=== PATIENT | female | born 1945 | race Caucasian/White ===

== ENCOUNTER 2023-11-25 11:19 | Outpatient (CLI) | payer MEDICARE, SELFPAY ==
[2023-11-25 12:26] LABS: Pathologist Comment May follow
[2023-11-25 13:09] LABS: Erythrocyte Sedimentation Rate 23 mm/hr (0-30)
[2023-11-25 13:11] LABS: Absolute Lymphocyte Count 1.47 X10^3/uL (0.83-4.51); Absolute Neutrophil Count 2.7 X10^3/uL (2.0-7.7); Basophil# 0.05 X10^3/uL; Eosinophil# 0.11 X10^3/uL; Eosinophils% 2.3 % (0-5); Hematocrit 36.6 % (37-47); Hemoglobin 12.1 g/dL (12.0-15.0); Lymphocyte # 1.47 X10^3/ul (0.83-4.51); Lymphocyte % 30.8 % (19-41); Mean Corp Hgb Conc 33.1 g/dL (32-36); Mean Corpuscular Hgb 29.7 pg (27.0-32.0); Mean Corpuscular Volume 89.7 fL (81-99); Mean Platelet Vol. 10.2 fl (6.2-12.0); Monocyte# 0.49 X10^3/uL; Monocyte% 10.3 % (0-10); NRBC Flagged by Analyzer 0 % (0-5); Neutrophil # 2.65 X10^3/uL (2.7-7.7); Neutrophil % 55.6 % (47-70); Platelet Count 240 K/mm3 (150-450); RBC Distribution Width CV 12.9 % (11.6-14.6); RBC Distribution Width SD 42.4 fl (35.1-43.9); Red Blood Count 4.08 M/mm3 (4.2-5.4); White Blood Count 4.8 K/mm3 (4.4-11.0)
[2023-11-25 13:17] LABS: CRP < 2.90 mg/L (0.0-3.0)
[2023-11-25 13:29] LABS: Synovial Fld Mononuclear WBC # 0.325 10^3/ul; Synovial Fld Mononuclear WBC % 79.3 %; Synovial Fld Polynuclear WBC # 0.085 10^3/uL; Synovial Fld Polynuclear WBC % 20.7 %
[2023-11-25 14:39] LABS: Lymph 25 %; Monocyte /Synovial Fluid 45 %; Neutrophil 21 % (0-25); Other Cell /Synovial Fluid 9 %
[2023-11-25 14:40] LABS: AUTO B FLUID DILUENT BKGD CT WBC <0.1 RBC <0.01 (W<.1,R<.01); CRYSTALS, BODY FLUID NO CRYSTALS SEEN
[2023-11-25 14:41] LABS: Appearance /Synovial Fluid Sl hazy (CLEAR); Body Fluid QC Type(s) BF1Q,BF2Q; Color / Synovial Fluid Yellow (Pale Yellow); Source / Synovial Fluid RIGHT SHOULDER; Source- Body Fluid SYNOVIAL
[2023-11-26 10:59] LABS: Pathologist Review Reviewed
== END 2023-11-25 23:59 | disposition home or self-care (01) ==
LOC: LAB 11:26
PROVIDERS: PCP Family Medicine; Referring Provider Orthopaedic Surgery; Visit Provider Orthopaedic Surgery
DX: M19.011 Primary osteoarthritis, right shoulder (principal); M25.411 Effusion, right shoulder
CPT/HCPCS: 36415; 85025; 85652; 86140; 87070; 87075; 87205; 89050; 89051; 89060

== ENCOUNTER → 2024-04-27 | Outpatient (CLI) | payer MEDICARE, SELFPAY ==
--- NOTE | 2024-04-27 08:21 | CT_ITS ---
STUDY: CT RIGHT SHOULDER REASON FOR EXAM: Female, 78 years old. PAIN IN RIGHT SHOULDER. PRE-OP RADIATION DOSAGE (If Supplied By Facility): CTDIvol = ( 17.81 ) mGy, DLP = ( 443.07 ) mGycm TECHNIQUE: The patient was scanned in a multi detector CT scanner. High resolution transaxial imaging was performed without the administration of intravenous contrast material. Sagittal and coronal images were reconstructed. Individualized dose optimization techniques were used for this CT. COMPARISON: None. FINDINGS: There is anterior-inferior dislocation of the humeral head with respect to the glenoid. There is a Hill-Sachs lesion of the superior humeral head. There is a fracture of the anterior-inferior glenoid with 1 cm anteroinferior displacement, compatible with a bony Bankart lesion. There is a large glenohumeral joint effusion. Normal glenoid neck and visualized scapula. Normal coracoid process. Normal visualized lateral clavicle. There is hypertrophic acromioclavicular arthrosis. There is a Type II morphology (curved), with a neutral orientation. Normal visualized muscles and soft tissue structures. CT/Extremity Upper without Contra IMPRESSION: Anterior-inferior dislocation of the humeral head with respect to the glenoid. Hill-Sachs lesion of the superior humeral head. Fracture of the anterior-inferior glenoid with 1 cm anteroinferior displacement, compatible with a bony Bankart lesion. Large glenohumeral joint effusion. Hypertrophic acromioclavicular arthrosis. Electronically Signed: Christopher Yeboah MD at 9:07 EDT ,
[2024-04-27 09:16] LABS: Absolute Lymphocyte Count 1.37 X10^3/uL (0.83-4.51); Absolute Neutrophil Count 2.7 X10^3/uL (2.0-7.7); Basophil# 0.05 X10^3/uL; Basophil% 1.1 % (0-1); Eosinophils% 2.1 % (0-5); Hemoglobin 12.8 g/dL (12.0-15.0); Lymphocyte # 1.37 X10^3/ul (0.83-4.51); Lymphocyte % 28.9 % (19-41); Mean Corp Hgb Conc 32.8 g/dL (32-36); Mean Corpuscular Hgb 30.2 pg (27.0-32.0); Monocyte# 0.52 X10^3/uL; NRBC Flagged by Analyzer 0 % (0-5); Neutrophil # 2.69 X10^3/uL (2.7-7.7); Neutrophil % 56.7 % (47-70); Platelet Count 223 K/mm3 (150-450); RBC Distribution Width CV 13.2 % (11.6-14.6); RBC Distribution Width SD 44.4 fl (35.1-43.9); Red Blood Count 4.24 M/mm3 (4.2-5.4); White Blood Count 4.7 K/mm3 (4.4-11.0)
[2024-04-27 10:36] LABS: Albumin, Serum 3.8 g/dL (3.2-5.0); Anion Gap 8 (5-15); BUN 20 mg/dL (7-18); BUN/Creat Ratio 20.7 RATIO (10-20); Calcium,Total 9.5 mg/dL (8.5-10.1); Chloride 106 mmol/L (98-107); Creatinine, Serum 0.97 mg/dL (0.55-1.02); EST Glomerular Filtration Rate 59 mL/min (>60); Est Glom Filt Rate - Afr Amer 72 mL/min (>60); Glucose 95 mg/dL (74-106); Potassium 3.9 mmol/L (3.5-5.1); Sodium Level 139 mmol/L (136-145)
== END | disposition home or self-care (01) ==
LOC: CT 08:16
PROVIDERS: PCP Family Medicine; Referring Provider Student in an Organized Health Care Education/Training Program; Visit Provider Student in an Organized Health Care Education/Training Program
DX: Z01.818 Encounter for other preprocedural examination (principal); M19.011 Primary osteoarthritis, right shoulder; M25.511 Pain in right shoulder; Z01.810 Encounter for preprocedural cardiovascular examination
CPT/HCPCS: 36415; 73200; 80048; 82040; 85025; 87081

== ENCOUNTER 2024-05-27 05:21 | Day surgery (SDC) | payer MEDICARE, SELFPAY ==
--- NOTE | 2024-04-27 08:23 | EKG12_ITS ---
Test Reason : PREOP Blood Pressure : / mmHG Vent. Rate : 067 BPM Atrial Rate : 067 BPM P-R Int : 152 ms QRS Dur : 090 ms QT Int : 416 ms P-R-T Axes : 032 -17 007 degrees QTc Int : 439 ms Normal sinus rhythm Inferior infarct , age undetermined Abnormal ECG Confirmed by MARISA DONNELLY, DARLINE ([id number]), editor school photograph EDUARDO STEPHENS ([id number]) on 04/28/2024 10:59:08 AM Referred By: IVAN Confirmed By:DARLINE CUNNINGHAM MD
[2024-05-27] VITALS (11 sets, daily range): BP systolic 134–162; BP diastolic 68–79; PULSE 65–79; RESP 12–20; TEMP 36.1–36.2; O2SAT 86–98; BMI 31.4
[2024-05-27] MEDS: Acetaminophen 500 MG Tablet 1000 MG PO (06:21)
[2024-05-27] MEDS: Gabapentin 600 MG Tablet PO (06:22)
[2024-05-27] MEDS: Celecoxib 200 MG Capsule 400 MG PO (06:22)
[2024-05-27] MEDS: Lactated Ringers 1,000 ML 15 ML IV (06:23)
[2024-05-27 06:26] LABS: Magnesium 2.1 mg/dL (1.6-2.6)
--- NOTE | 2024-05-27 06:55 | PRE.ANES_ITS ---
ASA Classification* ASA Classification ASA Classification: 2 Assessment & Plan Anesthesia* Anesthesia Assessment Anesthesia Assessment: Discussed sedation and/or anesthesia options, risks, benefits, and alternatives with patient/parents/legal guardian/POA. Questions invited. The patient/parents/legal guardian/POA seems to understand and agrees to proceed with anesthesia plan. Reviewed the physical assessment, medical history, allergy history and patient home medications list prior to surgery/procedure/anesthetic and documented any changes. Performed airway and anesthesia risk assessments. Anesthesia Type Anesthesia Type: General Anesthesia Focused Assessment* Temperature: 97.1 F Pulse Rate: 71 Blood Pressure: 162/76 Respiratory Rate: 20 Pulse Ox: 96 Airway Assessment Mouth opens: >3 cm Mallampati Score: II Focused Labs Anesthesia Preop lab: CBC WBC 4.7 K/mm3 (4.4-11.0) 04/27/24 08:42 RBC 4.24 M/mm3 (4.2-5.4) 04/27/24 08:42 Hgb 12.8 g/dL (12.0-15.0) 04/27/24 08:42 Hct 39.0 % (37-47) 04/27/24 08:42 Plt Count 223 K/mm3 (150-450) 04/27/24 08:42 CHEMISTRY Potassium 3.9 mmol/L (3.5-5.1) 04/27/24 08:42 Sodium 139 mmol/L (136-145) 04/27/24 08:42 Magnesium 2.1 mg/dL (1.6-2.6) 05/27/24 06:02 BUN 20 mg/dL (7-18) H 04/27/24 08:42 Creatinine 0.97 mg/dL (0.55-1.02) 04/27/24 08:42 Glucose 95 mg/dL (74-106) 04/27/24 08:42 COAG Pre-Assessment Diagnosis/Proposed Procedure Planned Operative Procedure(s): REVERSE RIGHT TOTAL SHOULDER ARTHROPLASTY Anesthesia History Anesthesia History - customer contact specialist: Anesthesia History - customer contact specialist Hx Hospitalization No 05/13/24 11:47 Any Problems With Anesthesia No 05/13/24 11:47 Cholinesterase deficiency No 05/13/24 11:47 You/Your Family Experience No 05/13/24 11:47 fever (hyperthermia) with Relationship Recent Exposure to Contagious No 05/27/24 06:11 Disease Does patient have nerve No 05/13/24 11:47 stimulator Patient instructed to have device shut off --Does patient have Pacemaker No 05/27/24 06:11 or ICD? When Was Last Pacemaker Check QUESTION #4 FULL TEXT: You/Your Family Experience fever (hyperthermia) with Anesthesia Last Oral Intake Last Oral intake: Last Oral Intake NPO since 21:00 05/27/24 06:11 Meds taken in AM with sips of No 05/27/24 06:11 water? Meds patient instructed to take am of surgery PONV PONV - customer contact specialist: PONV - customer contact specialist Female Yes 05/13/24 11:47 HX of Motion Sickness No 05/13/24 11:47 HX of N/V After Surgery No 05/13/24 11:47 Non-Smoker Yes 05/13/24 11:47 Duration of Surgery greater Yes 05/13/24 11:47 than 60 minutes Number of Risk Factors 3 05/13/24 11:47 PONV Score Moderate Risk 05/13/24 11:47 Height & Weight Height & Weight: Anesthesia: Height & Weight Height 5 ft 2 in 05/27/24 06:11 Weight: 78 kg 05/27/24 06:11 Body Mass Index (BMI) 31.4 05/27/24 06:11 Respiratory Assessment Respiratory Assessment - customer contact specialist: Respiratory Tract Infection Hx - customer contact specialist Hx Respiratory Tract Infection No 05/13/24 11:47 STOP Sleep Apnea STOP Sleep Apnea - customer contact specialist: STOP Sleep Apnea - customer contact specialist Hx Hypertension Yes: CONTROLLED WITH MED 05/13/24 11:47 Hx Sleep Apnea No 05/13/24 11:47 CPAP BIPAP Do you snore loudly (louder Yes 05/13/24 11:47 than talking or can be heard Do you often feel tired/ No 05/13/24 11:47 fatigued/ sleepy during daytime? Has anyone observed you stop No 05/13/24 11:47 breathing during sleep? STOP Results Positive 05/13/24 11:47 QUESTION #5 FULL TEXT : Do you snore loudly (louder than talking or can be heard through closed doors)? Tobacco Use History Tobacco Use History - customer contact specialist: Tobacco Use History - customer contact specialist Tobacco Use Smoking Status Never smoker 05/13/24 11:47 Hx Tobacco Use No 05/13/24 11:47 Years Smoking Packs Smoked per Day Smoking Cessation Date was within the last 15 years Hx Smoking Cessation Date Hx Smoking Cessation Counseling Hematologic Medial History Hematologic Hx - customer contact specialist: Hematologic Medical Hx - polisher balance screwhead Hx of Blood Transfusion No 05/13/24 11:47 Hx of Transfusion in last 3 No 05/13/24 11:47 Months Date of Last Transfusion (if within last 3 months) Ever experience any problems No 05/13/24 11:47 with transfusion(s)? Specify any problems Hx of Preganancy in last 3 No 05/13/24 11:47 Months Nurse Filling Out Transfusion DSCHRIBER 05/13/24 11:47 & Questions: Date: 05/13/24 05/13/24 11:47 Time: 11:48 05/13/24 11:47 Patient unable to answer at this time (ie. confused, unrespo /Reproduction History /Reproductive History - customer contact specialist: /Reproductive Hx- customer contact specialist Hx Now No 05/13/24 11:47 Gestational Age (in weeks): EDC: Hx Hx Para Hx Section SAB No 05/13/24 11:47 Active Medications Active Medications: Current Medications Generic Name Dose Route Start Last Admin Trade Name Terry PRN Reason Stop Dose Admin Acetaminophen 1,000 mg 05/27/24 10:30 05/27/24 06:21 Acetaminophen 500 Mg Tablet PO 05/27/24 10:31 1,000 mg X1 ONE Administration Celecoxib 400 mg 05/27/24 10:30 05/27/24 06:22 Celecoxib 200 Mg Capsule PO 05/27/24 10:31 400 mg X1 ONE Administration Sodium Chloride 77.4 ml/ 0 ml 05/27/24 10:30 Ropivacaine 200 mg/ OPERA.SITE 05/27/24 10:31 Epinephrine HCl 0.6 mg/ X1 ONE Ketorolac Tromethamine 30 mg/ Morphine Sulfate 5 mg Dexamethasone Sodium Phosphate 10 mg 05/27/24 10:30 Dexamethasone 10 Mg/Ml Vial IV 05/27/24 10:31 X1 ONE Gabapentin 600 mg 05/27/24 10:30 05/27/24 06:22 Gabapentin 600 Mg Tablet PO 05/27/24 10:31 600 mg X1 ONE Administration Tranexamic Acid 1,000 mg/ 110 mls @ 660 mls/hr 05/27/24 10:30 Sodium Chloride IV 05/27/24 10:39 X1 ONE Tranexamic Acid 1,000 mg/ 110 mls @ 660 mls/hr 05/27/24 11:00 Sodium Chloride IV 05/27/24 11:09 X1 ONE Cefazolin Sodium 2 gm/ N/A 20 mls @ 400 mls/hr 05/27/24 10:30 IV 05/27/24 10:32 PREOP ONE Lactated Ringer's 1,000 mls @ 15 mls/hr 05/27/24 06:30 05/27/24 06:23 IV 06/01/24 19:49 15 mls/hr .Q48H SHELBIE Administration Protocol Magnesium Sulfate 1 gm/ 102 mls @ 408 mls/hr 05/27/24 07:30 Dextrose IV 05/27/24 07:44 X1 ONE Insulin Human Lispro 1 - 6 unit 05/27/24 10:30 Insulin Lispro 100 Unit/Ml Insuln.Pen SC 05/27/24 16:30 Q4H PRN PRN BG>/= 180, SEE PROTOCOL Protocol PFSH Medical History Wears glasses Wears dentures Post-menopausal Arthritis High cholesterol Non-smoker Leg cramps History of pain when walking Hypertension Home Medications ?Medication ?Instructions ?Recorded ?Last Taken ?Type cod liver oil 1 cap PO DAILY 05/13/24 05/21/24 History coenzyme Q10 100 mg capsule (Co 100 mg PO DAILY 05/13/24 05/22/24 History Q-10) glucosamine sulf dipot 1 cap PO DAILY 05/13/24 05/22/24 History chlr,msm,chond 550 mg-C 30 mg-ghanshyam 1 mg capsule (Glucosamine Chondroitin) losartan 50 mg-hydrochlorothiazide 0.5 tab PO DAILY 05/13/24 05/26/24 History 12.5 mg tablet fzuwxlgs-slia-udvk 8 mg-folic 400 1 tab PO DAILY 05/13/24 05/21/24 History mcg-K 50 mcg-lutein 300 mcg tablet (Multivitamin Women 50 Plus) rosuvastatin 5 mg tablet 5 mg PO QHS 05/13/24 05/26/24 History turmeric 400 mg capsule 400 mg PO DAILY 05/13/24 05/21/24 History Allergy/AdvReac Type Severity Reaction Status Date / Time No Known Allergies Allergy Verified 05/27/24 06:09 Surgical History Hx of breast surgery Hx of tubal ligation Social History Smoking Status: Never smoker Review of Systems (Anesthesia) ROS Narrative System reviewed and no additional complaints, except as documented.
[2024-05-27] MEDS: Magnesium 1 GM over 15 mins IV (07:13)
--- NOTE | 2024-05-27 07:30 | SHO_PTH ---
PATIENT: ROSA ISELA DEVI LOC: [facility] U#:[id number] AGE/SX: 78/F ROOM: RE05/27/[address]: Dr. Kurtis Dumont DO : 1945 BED: DIS: 05/27/2024 SPEC #: [id number] RECD: 05/27/24 11:06 STATUS: JOSE REQ #: [id number] IGOR: 05/27/24 07:[address]: Kurtis Dumont DEPT: SURGICAL PATHOLOGY RECD BY: Katina Oakley ENTERED: 05/27/24 12:11 SP TYPE: HUMERUS OTHR DR: Dr. Alexandre Cee MD Tissues: Humerus, NOS Procedures: Decalcification bone/plaque Surgery Specimen Level IV HEADER OPERATION: Reverse right total shoulder arthroplasty PRE-OP DIAGNOSIS: Right shoulder glenohumeral joint dislocation TISSUE SUBMITTED: Humeral head MICROSCOPIC DIAGNOSIS Bone and tissue right shoulder, total shoulder replacement/resection: Fragment of bone with attached cartilage and soft tissue showing degenerative changes. 06/02/2024 MICROSCOPIC DESCRIPTION Slides are reviewed. GROSS DESCRIPTION Received is one container labeled with the patient's name and designated bone and soft tissue. The specimen consists of a humeral head measuring 4.5 x 4.0 x 1.5 cm. The articular surface shows areas of erosion, eburnation and osteophyte formation. No soft tissue is identified. Supervisor Phosphatic Fertilizer sections are submitted in one cassette after decalcification. / ERICA: 05/27/2024 TC:5 CPT: 31701, 82813
[2024-05-27 07:34] LABS: Bedside Glucose 108 mg/dL (74-106)
[2024-05-27] MEDS: TXA 1000mg in NS100 100ml (IVPB at Incision) 660 MG IV (08:00)
[2024-05-27] MEDS: dexAMETHasone 10 MG/ML Vial IV (08:00)
[2024-05-27] MEDS: Cefazolin 2 GM in Syringe IV (08:00)
--- NOTE | 2024-05-27 09:46 | OP.PCM_ITS ---
Operative Report (Standard) Operative Information Surgery/Procedure Performed: Right reverse shoulder arthroplasty Surgeon: Kurtis Dumont Date of Procedure: 05/27/24 Procedure Start Time: 08:14 Procedure Stop Time: 09:46 Pre-Operative Diagnosis: Right shoulder cuff tear arthropathy Post-Operative Diagnosis: Right shoulder cuff tear arthropathy Select all DRAINS/GRAFTS/IMPLANTS that apply: None Type of Anesthesia: General/Regional Estimated Blood Loss: 50 cc Fluids Replaced: Per anesthesia record Specimen collected: Yes Description of specimen(s) removed: Right humeral head Description of surgery: Surgeon: Kurtis Dumont DO Rate Engineer: Caitlin Chun PA-C Anesthesia: General endotracheal with interscalene block Associate Director Career Services: Gideon Jay CRNA Complications: None apparent Drains: None Surgical implants: Tornier Aequalis PerFORM+ reversed baseplate 25 mm diameter with half wedge augmentation, +3 mm lateralized standard glenosphere cobalt chrome 39 mm diameter, Tornier perform inlay stem size # 2, + 0 mm retentive size polyethylene insert, 25 mm central screw and peripheral screws x4. Surgical indications: This is a 78-year-old female with persistent right shoulder pain. She did have worsening symptoms over the last several months. X-rays revealed rotator cuff arthropathy with anterior deficiency and erosive wear of the anterior glenoid and subluxation.. I recommended a reverse shoulder arthroplasty. We obtained a preoperative CT scan for planning. The risks, benefits, alternatives the procedure was reviewed with the patient and he agreed to proceed. Risks included but were not limited to bleeding, infection, instability, loss of life or limb, risk of anesthesia, neurovascular injury, persistent pain, stiffness, prolonged immobilization, need for additional surgery, loosening of orthopedic hardware. She expressed understanding and wished to proceed with surgery. Surgical details: Patient arrived to [facility] morning of the procedure and was greeted by the same day surgery staff. Prior to her procedure, I greeted the patient in the preoperative holding area I identified the patient by name, record number, and date of . Informed consent was confirmed. The operative extremity was marked. All questions were answered to patient satisfaction. An interscalene block was administered prior to procedure by anesthesia staff for postoperative and intraoperative analgesia. At time of her procedure, patient was brought to the operative suite and positioned supine on a standard table with a beachchair attachment. General anesthesia was induced after all bony prominences were well-padded. Endotracheal tube was placed. After adequate anesthesia and securing the tube, we prepared the patient to be positioned in the beachchair position. A well- padded baker head was applied. The nonoperative extremity was placed in a well arm gallegos. She was then brought into the beachchair position after we confirmed an appropriate blood pressure. We then spun the bed 45 degrees. The operative extremity was then prepared. In the butterfly wing of the bed was removed and a well-padded torso strap was applied to secure the patient to the ed. The operative extremity was now free. We then prepped and draped the right upper extremity in normal, sterile orthopedic fashion. We then performed a timeout with all parties in attendance in agreement with the side, site, and operation be performed. 2 g Ancef was administered prior to incision by anesthesia staff, as well as 1 g TXA IV. No concerns were voiced and we elected to proceed. I first marked a standard deltopectoral incision just lateral to the coracoid process in line with the long axis of the humerus. Skin was sharply incised with 10 blade scalpel. I then dissected bluntly through the subcutaneous layers and found the fat stripe between the deltoid and pectoralis major. The cephalic vein was then identified and protected. It was retracted laterally with the deltoid. I then bluntly dissected underneath the deltoid with a Sethi elevator. Dhruv retractor was placed. The upper 1 cm of the pectoralis major was released. I then identified the long head of the biceps tendon in the intertubercular groove. This was tenodesed in situ with #2 FiberWire. I then amputated the biceps proximal to the tenodesis site and followed the tendon to the supraglenoid tubercle where it was amputated. This identified the lesser and greater tuberosities. The stab scapularis was chronically torn and the patient. Anterior capsule was released from the anterior and inferior humeral articular insertions with an external rotation of the shoulder. Humeral head was dislocated anteriorly. Appropriate access to the humeral head was confirmed. I then subluxed the humeral head posteriorly with a Fukuda retractor placed around the posterior lip of the glenoid. Inferior capsule was tensioned. I was able to palpate the axillary nerve. Inferior capsule was then released to the 4 o'clock position of the glenoid face. I then remove the Fukuda retractor and redislocated the shoulder anteriorly. I then made a anatomic neck cut of the cartilaginous surface of the humeral head. Sizing plate for a size # 2 stem was utilized to determine appropriate reaming size. A central pin was placed engaging the lateral cortex of the humerus. A size # 2reamer was used to ream the humeral metaphysis and prepare for the inlay stem. A canal finding reamer was utilized prior to sequential broaching to a size # 2 short stem with excellent rotational and axial purchase in the humerus. I remove the broach handle left the size # [address] I then subluxed the humerus posterior to the glenoid. I then placed retractors around the posterior and anterior glenoid to expose the glenoid. Remanent of glenoid labrum was removed with Bovie cautery protecting the axillary nerve. The glenoid deformity demonstrated significant sandra glenoid anteriorly with a noted deficiency of approximately one third of the paleo glenoid. A half wedge augment appeared to still the deficiency well. Center pin was placed per CT plan. The Nautilus shaped reamer was then placed over top of the centering pin. I reamed a flat surface of the glenoid to the level of the deficiency. The augmented reamer was then used to prepare the anterior deficiency. We then removed the reamer and used the cannulated drill for the central screw. Screw and baseplate was assembled on the back table. We then inserted the baseplate and central post the assembled baseplate to an appropriate depth with cortical purchase. Screw A [place] was used to confirm depth. Cortical screws then were placed in the peripheral holes with good purchase. The baseplate had excellent purchase and the entire scapula would rotate with rotation of the baseplate. We then impacted the 39+3 lateralization mm glenospher tightened the locking screw mechanism. We then removed retractors and turned our attention back to the humerus. I placed a standard +0 millimeters retentive polyethylene insert. I then reduced the shoulder. There was excellent range of motion and stability in all planes of motion. We selected this as our final size. We removed trials from the humerus after final dislocation. I copiously irrigated the canal. Broach was placed on hand and then impacted to an appropriate depth. Final +0 mm retentive polyethylene insert was placed. Final reduction was then performed. We then copiously irrigated the wound with sterile Betadine and normal saline solution. We reapproximated the interval with 0 Vicryl suture. Subcutaneous layers were reapproximated with 2 -0 Vicryl suture. Skin was finally running V- Loc 3-0 Monocryl suture and Dermabond. A sterile silver Mepilex dressing was applied. Patient was then placed in an ultra sling. Patient tolerated procedure well without complication. She was positioned back in the supine position extubated in the operative suite. He was transferred [facility] and subsequently to PACU in stable condition. Need for skilled malt specifications control assistant: Caitlin Chun PA-C was critical to the outcome of the case. During the course of the procedure the physician malt specifications control assistant played a vital role. Her intimate knowledge of my steps in the procedure aided in safe and expedient completion of the procedure. The PA played a vital role in positioning particularly in obtaining the appropriate positioning. The PA was also vital in the retraction of soft tissues during the exposure and protecting vital structures. The PA was also vital and protecting soft tissues during times of bony cuts. She also played a vital role in closure with my direct supervision. The PA was also important during reduction and dislocation of the joint and trials intraoperatively. Intraoperative medications: 2 g Ancef IV, 1 g TXA IV x2 Post Operative Plan: Plan for discharge home today after meeting PACU criteria. Weightbearing: Nonweightbearing right upper extremity, okay for pendulums. Range of motion of wrist elbow and hand as tolerated. Antibiotics: 2 g Ancef IV prior to incision, 24 hours IV antibiotics postoperatively DVT Prophylaxis: Aspirin enteric-coated 81 mg twice daily starting tomorrow Fernández: None Dressing: Maintain silver dressing x7 days. 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 Electrical Appliance Preparer postal carrier: Yes Rate Engineer: Ciatlin Chun Tasks completed by civil engineering assistant: Closing, Dissecting tissue, Implanting device and Retracting Complications Complications: No Admit VTE Documentation VTE Present on Admission: No VTE Mechan Device Prophylaxis: SCD's and Knee High CASANDRA Hose VTE Pharm Prophylaxis ordered?: Yes
--- NOTE | 2024-05-27 10:05 | PCM.POST.ANE ---
Anesthesia: Postop Eval I Current Vital Signs Temperature: 97 F Pulse Rate: 76 Blood Pressure: 139/70 Respiratory Rate: 20 Pulse Ox: 97 Oxygen Delivery Method: Nasal Cannula Assessment Airway patent: Yes Spontaneous unlabored respirations: Yes nausea: No Vomiting: No Anesthesia Complication: No Fluid Hydration Crystalloid volume administer (ml): 1,200 Total IV fluid infused: 1,200 Progress Note Anesthesia document: Postop Eval 1 completed: Yes
--- NOTE | 2024-05-27 10:06 | PCM.POSTANE2 ---
Anesthesia Postop Eval I Sum Postop Eval Completion status Anesthesia document: Postop Eval 1 completed: Yes Anesthesia Postop Eval I Summary Anesthesia Postop Eval I Summary: Anesthesia Postop Eval I: Assessment Summary Airway patent Yes 05/27/24 10:06 Spontaneous unlabored Yes 05/27/24 10:06 respirations Mental status nausea No 05/27/24 10:06 Vomiting No 05/27/24 10:06 Anesthesia Postop Eval I: Fluid Summary Crystalloid volume administer 1,200 05/27/24 10:06 (ml) Colloids volume administered ( ml) Blood Product volume administered (ml) Total IV fluid infused 1,200 05/27/24 10:06 Anesthesia Postop Eval I: Summary Notes Anesthesia Complication No 05/27/24 10:06 Anesthesia Complication Comment: Post-operative progress note Anesthesia: Postop Eval II Evaluation Mental status: Awake Pain Level: 0 nausea: No Vomiting: No
--- NOTE | 2024-05-27 10:30 | RAD_ITS ---
STUDY: X-RAY - RIGHT SHOULDER REASON FOR EXAM: Female, 78 years old. Post op -- AP and Lateral X-Ray of operative shoulder in PACU TECHNIQUE: 2 views of the right shoulder. COMPARISON: Right shoulder CT dated 04/27/2024. FINDINGS: There is a new right reverse shoulder arthroplasty in place. There is no periprosthetic fracture. There is mild acromioclavicular arthrosis. Normal acromion. Normal visualized proximal humerus. The soft tissue structures are unremarkable. Normal visualized pulmonary apex. RAD/Shoulder min 2 Views IMPRESSION: New right reverse shoulder arthroplasty in place, with no periprosthetic fracture. Electronically Signed: Christopher Yeboah MD at 10:56 EDT ,
--- NOTE | 2024-05-27 11:14 | SUR.PHASEII ---
pt wearing thigh high teds, post op order states knee high teds, gave patient a pair of knee high teds to take home with her. Pt and family member voice understanding.
== END 2024-05-27 13:58 | disposition home or self-care (01) ==
LOC: SDC 05:21 → AC 05:24
PROVIDERS: Anesthesiology; PCP Family Medicine; Referring Provider Student in an Organized Health Care Education/Training Program; Visit Provider Student in an Organized Health Care Education/Training Program
PROC: (CPT 23472; principal; 2024-05-27 07:00)
DX: S43.004A Unspecified dislocation of right shoulder joint, initial encounter (principal); I10 Essential (primary) hypertension; E78.5 Hyperlipidemia, unspecified; Z98.51 Tubal ligation status
CPT/HCPCS: 23472; 01638; 64450; 73030; 82962; 83735; 88305; 88311; 93005; 97166; C1713; C1776; J7120; J2405; J3475